=== PATIENT | male | born 1990 | race African-American/Black ===

== ENCOUNTER 2017-07-18 13:09 | Emergency (ER) | payer MEDICAID ==
[~2017-07-18] VITALS: Ht 177.8 cm; Wt 91.0 kg
[~2017-07-18 13:09] MED LIST: HYDROCORTISONE CRM
[2017-07-18] MEDS ORDERED: IBUPROFEN 600MG TABLET PO ONE (19:15)
[2017-07-18] MEDS ORDERED: TETANUS, DIPHTHERIA, PERTUSSIS VAC/PF 0.5ML (>7YR OLD) IM ONE (19:15)
[2017-07-18] MEDS ORDERED: IBUPROFEN 600MG TABLET ONE ×2 (19:50→19:53)
[2017-07-18 20:08] VITALS: BP 120/79
== END 2017-07-18 20:10 | disposition home or self-care (01) ==
LOC: ER 13:59
DX: L03.115 Cellulitis of right lower limb (principal)
CPT/HCPCS: 90471; 90715; 99283

== ENCOUNTER 2022-10-26 10:59 | Emergency (ER) | payer MEDICAID ==
[~2022-10-26] VITALS: Ht 177.8 cm; Wt 81.8 kg
[2022-10-26] MEDS ORDERED: CYCLOBENZAPRINE 10MG TABLET PO ONE (11:30)
[2022-10-26] MEDS ORDERED: KETOROLAC 30MG/ML VIAL IM ONE (11:30)
[2022-10-26] MEDS ORDERED: LIDOCAINE 5% PATCH TOP SCH (11:30)
[2022-10-26 11:42] VITALS: BP 140/96
[2022-10-26] MEDS ORDERED: LIDO700A15 TP (12:21)
[2022-10-26] MEDS ORDERED: NAPR-681 MT (12:21)
== END 2022-10-26 12:43 | disposition home or self-care (01) ==
LOC: ER 10:59
DX: S16.1XXA Strain of muscle, fascia and tendon at neck level, initial encounter (principal); S39.012A Strain of muscle, fascia and tendon of lower back, initial encounter; S60.221A Contusion of right hand, initial encounter; S80.12XA Contusion of left lower leg, initial encounter; V49.9XXA Car occupant (driver) (passenger) injured in unspecified traffic accident, initial encounter; Y93.89 Activity, other specified; Y92.89 Other specified places as the place of occurrence of the external cause; Y99.8 Other external cause status
CPT/HCPCS: 73130; 73590; 96372; 99284; J1885

== ENCOUNTER 2023-05-31 21:53 | Emergency (ER) | payer MEDICAID ==
[~2023-05-31] VITALS: Ht 182.9 cm; Wt 93.0 kg
[~2023-05-31 21:53] MED LIST changes: +LIDO700A15 TP; +NAPR-681 MT
[2023-05-31 21:59] VITALS: BP 154/94; PULSE 90; RESP 14; TEMP 98.3; O2SAT 99
[2023-05-31] MEDS ORDERED: KETOROLAC 60MG/2ML VIAL IM ONE (22:45)
[2023-05-31] MEDS ORDERED: HYDROCODONE/ACETAMINOPHEN 5/325MG TABLET PO ONE (22:45)
[2023-06-01] MEDS ORDERED: HYDROCODONE/ACETAMINOPHEN 5/325MG TABLET PO ONE (00:30)
[2023-06-01] MEDS ORDERED: CYCL5TAB MT (01:34)
[2023-06-01] MEDS ORDERED: LIDO700A15 TP (01:34)
[2023-06-01] MEDS ORDERED: TOPUD MT (01:34)
[2023-06-01] MEDS ORDERED: NAPR-681 MT (01:34)
== END 2023-06-01 02:17 | disposition home or self-care (01) ==
LOC: ER 21:53
DX: M54.50 Low back pain, unspecified (principal)
CPT/HCPCS: 99283; 96372; J1885